=== PATIENT | male | born 2000 | race Caucasian/White ===

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

== ENCOUNTER 2021-02-21 09:26 | Emergency (ER) | payer BC, SELFPAY ==
[2021-02-21 09:34] VITALS: BP 156/77; PULSE 92; RESP 16; TEMP 36.5; O2SAT 99
--- NOTE | 2021-02-21 10:30 | ED.URI ---
HPI - URI/Sore Throat General Chief Complaint: Upper Respiratory Infection Stated Complaint: Sore Throat/Congestion Source: patient and RN notes reviewed Mode of arrival: ambulatory History of Present Illness HPI Narrative: 20-year-old male presents with complaint of increased fatigue, cough with yellow sputum for about 4 days. He endorses his girlfriend had a negative Covid test about 4 days ago. He denies shortness of breath, fever, chills, headache, or dizziness. Related Data Allergies Allergy/AdvReac Type Severity Reaction Status Date / Time No Known Allergies Allergy Verified 03/30/19 11:23 Review of Systems Review of Systems: All systems reviewed & are unremarkable except as noted in HPI and below PMFSH Past Medical History Medical History ADHD Asthma Family History Family History (Updated 02/21/21 @ 10:34 by Radhika Velazquez APRN) Other Family history non-contributory Social History Social History Smoking status: Never smoker Exam Narrative: GENERAL: This is a well-nourished, well-developed patient, in no apparent distress. HEAD: normocephalic, atraumatic. EYES: PERRL. Sclera clear/white. Vision is grossly intact. EARS: External ears normal, auditory canals clear and without drainage, TMs normal without perforation. Hearing grossly intact. NOSE: External nose normal with no obvious nasal discharge, nares without redness, no rhinorrhea. THROAT: Mucous membranes moist, posterior pharynx clear. NECK: Neck supple, non-tender without lymphadenopathy, masses or thyromegaly. CARDIOVASCULAR: Regular rate and rhythm without murmurs, gallops, or rubs. RESPIRATORY: Clear to auscultation. Breath sounds equal bilaterally. No wheezes, rales, or rhonchi. GASTROINTESTINAL: Abdomen soft, non-tender, nondistended. SKIN: warm, intact with no suspicious lesions or rash, good texture and turgor. NEURO: awake, alert, and oriented to person, place and time. There were no obvious focal neurologic abnormalities. Steady gait EXTREMITIES: Normal range of motion. No edema. No calf tenderness. Negative Homans sign bilaterally. BACK: Nontender without deformity or crepitance. No flank tenderness. Course Course Level of Care: Express Care Visit Vital Signs Vital signs: Vital Signs Temperature 97.7 F 02/21/21 09:34 Pulse Rate 92 02/21/21 09:34 Respiratory Rate 16 02/21/21 09:34 Blood Pressure 156/77 H 02/21/21 09:34 Pulse Oximetry 99 02/21/21 09:34 Temperature 97.7 F 02/21/21 09:34 Pulse Rate 92 02/21/21 09:34 Respiratory Rate 16 02/21/21 09:34 Blood Pressure 156/77 H 02/21/21 09:34 Pulse Oximetry 99 02/21/21 09:34 MDM - URI/Sore Throat MDM Narrative Medical decision making narrative: covid swab neg Discharge home with instructions on supportive care. Differential Diagnosis Differential diagnosis: Likely upper respiratory infection, sinusitis, viral infection and influenza Discharge Plan Discharge Clinical Impression: Viral infection Patient Disposition: Home, Self-Care Condition: Stable Instructions: Antibiotic Form, Viral Syndrome (ED) Additional Instructions: This is likely viral illness, no antibiotic is needed at this time. Treatment is aimed toward your specific symptoms. You must treat your symptoms in order to feel better while the virus runs it's course. Recommend antihistamine such as Benadryl at night time and Claritin/Zyrtec/Namita during the day Use inhaler as needed for cough, wheezing, shortness of breath or chest tightness. -Hot steamy showers in the morning to help open up your sinuses -Hot tea with lemon and honey. A teaspoon of honey may help as a cough suppressant. -Increase fluid intake Frequent hand washing or hand drag car racer is one of the best ways to prevent spread of infection. Prescriptions: New cetirizine [Zyrtec] 10 mg
== END 2021-02-21 11:22 | disposition home or self-care (01) ==
PROVIDERS: Emergency Provider Nurse Practitioner Family
DX: B34.9 Viral infection, unspecified (principal); Z20.822 Contact with and (suspected) exposure to COVID-19; J45.909 Unspecified asthma, uncomplicated
CPT/HCPCS: 87426; 99213; C9803; G0463

== ENCOUNTER 2021-04-02 17:18 | Emergency (ER) | payer BC, SELFPAY ==
--- NOTE | 2021-04-02 17:21 | ED.UPPEXIN ---
HPI - Extremity Injury (Upper) General Chief Complaint: Extremity Injury, Upper Stated Complaint: collarbone pain Time Seen by Provider: 04/02/21 17:21 Source: patient and RN notes reviewed History of Present Illness HPI narrative: Patient is a 20-year-old male who presents the urgent care with complaints of right shoulder/collarbone pain. Patient states that he noticed it prior to his workout and then started to workout this evening. 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 Patient has not done any thing [id number] for his pain. Denies of any known trauma or injury. No other complaints. No acute distress noted. Patient aware of the plan of care. Some parts of this dictation were generated by voice recognition software and may contain typographical and/or grammatical inaccuracies. Related Data Allergies Allergy/AdvReac Type Severity Reaction Status Date / Time No Known Allergies Allergy Verified 04/02/21 17:26 Review of Systems Review of Systems: CONSTITUTIONAL: Denies fever, chills, or sweats. EYES: Denies visual changes, redness, or discharge. ENT: Denies rhinorrhea, congestion, sore throat, or otalgia. CARDIOVASCULAR: Denies chest pain, palpitations, or edema. RESPIRATORY: Denies cough or dyspnea. GASTROINTESTINAL: Denies abdominal pain, nausea, vomiting, or diarrhea. GENITOURINARY: Denies dysuria or hematuria. SKIN: Denies rash or itching. MUSCULOSKELETAL: Reports of right shoulder pain radiating to the right collarbone NEUROLOGIC: Denies headache, numbness, or weakness. All other systems reviewed are negative, except as documented in HPI. PMFSH Past Medical History Medical History ADHD Asthma Family History Family History (Updated 02/21/21 @ 10:34 by Radhika Velazquez APRN) Other Family history non-contributory Social History Social History Smoking status: Never smoker Comments At the time of my signature, I reviewed and agree with the nursing past medical, surgical, social, and family history. There is no relevant family history pertinent to the patient complaint. Exam Narrative: GENERAL: This is a well-nourished, well-developed patient, in no apparent distress. HEAD: normocephalic, atraumatic. EYES: PERRL. Sclera clear/white. Vision is grossly intact. EARS: External ears normal NOSE: External nose normal with no obvious nasal discharge, nares without redness, no rhinorrhea. THROAT: Mucous membranes moist, posterior pharynx clear. NECK: Neck supple SKIN: warm, intact with no suspicious lesions or rash, good texture and turgor. NEURO: awake, alert, and oriented to person, place and time. There were no obvious focal neurologic abnormalities. EXTREMITIES: Range of motion bilateral upper extremities is within normal limits. Very mild exacerbated pain to the right shoulder, with lifting above the head. No crepitus or step-off noted to the bilateral collarbones. Course Course Level of Care: Express Care Visit Vital Signs Vital signs: Vital Signs Temperature 96.8 F L 04/02/21 17:24 Pulse Rate 100 04/02/21 17:24 Respiratory Rate 20 04/02/21 17:24 Blood Pressure 160/88 H 04/02/21 17:24 Pulse Oximetry 98 04/02/21 17:24 Temperature 96.8 F L 04/02/21 17:33 Pulse Rate 100 04/02/21 17:33 Respiratory Rate 20 04/02/21 17:33 Blood Pressure 160/88 H 04/02/21 17:33 Pulse Oximetry 98 04/02/21 17:33 Reviewed-patient is informed that they may have pre-hypertension or hypertension based on a blood pressure reading in the department. I recommend the patient call the primary care provider listed on their discharge instructions or a physician of their choice this week to arrange follow-up for further evaluation of possible pre-hypertension or hypertension. MDM - Extremity Injury (Upper) MDM Narrat
[2021-04-02 17:24] VITALS: BP 160/88; PULSE 100; RESP 20; TEMP 36; O2SAT 98
[2021-04-02 17:33] VITALS: BP 160/88; PULSE 100; RESP 20; TEMP 36; O2SAT 98
== END 2021-04-02 17:45 | disposition home or self-care (01) ==
PROVIDERS: Emergency Provider Nurse Practitioner Family; PCP Internal Medicine Infectious Disease
DX: S43.401A Unspecified sprain of right shoulder joint, initial encounter (principal); X58.XXXA Exposure to other specified factors, initial encounter; J45.909 Unspecified asthma, uncomplicated
CPT/HCPCS: 99212; G0463

== ENCOUNTER 2024-12-11 14:33 | Emergency (ER) | payer OTHER, SELFPAY ==
[2024-12-11 14:36] VITALS: BP 182/107; PULSE 106; RESP 18; TEMP 36.6; O2SAT 99
--- NOTE | 2024-12-11 14:50 | ED_ITS ---
HPI - Extremity Injury (Lower) General Chief Complaint: Extremity Injury, Lower Stated Complaint: Left Leg Pain Time Seen by Provider: 12/11/24 14:50 Source: patient Mode of arrival: ambulatory Limitations: no limitations History of Present Illness HPI Narrative: 24 yo M presents with pain to L thigh for 1 wk. Denies injury. i think pain should have been better by now so just coming to get it looked at. Pt states pain definitely muscular, no pain at rest, worse with movement. All systems reviewed and negative except as noted above. Related Data Home Medications ?Medication ?Instructions ?Recorded ?Confirmed ?Last Taken ?Type lisdexamfetamine 30 mg capsule mg 12/11/24 Unknown Hi story Allergies Allergy/AdvReac Type Severity Reaction Status Date / Time No Known Allergies Allergy Verified 12/11/24 14:47 [facility] Past Medical History Medical History ADHD Asthma Family History Family History (Updated 02/21/21 @ 10:34 by Radhika Barron APRN) Other Family history non-contributory Social History Social History Smoking status: Never smoker Living arrangements: with family Occupation/Education: student Comments At time of signature, agree with nursing past medical, surgical, social and family history. There is no relevant family history pertinent to the presenting complaint. Exam Narrative: GENERAL: This is a well-nourished, well-developed patient, in no apparent distress. HEAD: normocephalic, atraumatic. EYES: PERRL. Sclera clear/white. Vision is grossly intact. EARS: External ears normal NOSE: External nose normal NECK: Neck supple, non-tender without lymphadenopathy, masses or thyromegaly. CARDIOVASCULAR: Regular rate and rhythm without murmurs, gallops, or rubs. RESPIRATORY: Clear to auscultation. Breath sounds equal bilaterally. No wheezes, rales, or rhonchi. SKIN: warm, Dry, intact with no suspicious lesions or rash, good texture and turgor. NEURO: awake, alert, and oriented to person, place and time. There were no obvious focal neurologic abnormalities. EXTREMITIES:tenderness to medial aspect L thigh on palpation. pain with active ROM, not passive ROM. normal ROM. distal NV intact Course Course Level of Care: Express Care Visit Vital Signs Vital signs: Vital Signs Temperature 36.6 C 12/11/24 14:36 Pulse Rate 106 H 12/11/24 14:36 Respiratory Rate 18 12/11/24 14:36 Blood Pressure 182/107 H 12/11/24 14:36 Pulse Oximetry 99 12/11/24 14:36 Oxygen Delivery Room Air 12/11/24 14:36 Temperature 36.6 C 12/11/24 14:36 Pulse Rate 106 H 12/11/24 14:36 Respiratory Rate 18 12/11/24 14:36 Blood Pressure 182/107 H 12/11/24 14:36 Pulse Oximetry 99 12/11/24 14:36 Oxygen Delivery Room Air 12/11/24 14:36 At time of signature, agree with nursing past medical, surgical, social and family history. There is no relevant family history pertinent to the presenting complaint. MDM - Extremity Injury (Lower) MDM Narrative Medical decision making narrative: recommend [id number] ibuprofen, ice, stretching. Will prescribe methocarbamol to take as needed for muscle spasms. Will follow-up primary care physician if not improving. Discharge Plan Discharge Clinical Impression: Muscle strain of left thigh Patient Disposition: Home Condition: Stable Instructions: Muscle Strain (ED) Additional Instructions: Take medications as prescribed. Methocarbamol as a muscle relaxant may cause drowsiness. Do not take this medication while driving. Alternate between ice and heat. Do stretching exercises as tolerated. Follow-up your primary care physician if pain is not improving. Patient Language: Jamaican Prescriptions: New ibuprofen 800 mg tablet 800 mg PO TID PRN (Reason: pain) Qty: 30 0RF methocarbamol 750 mg tablet 750 mg PO Q8H PRN (Reason: muscle pain/spasm) Qty: 30 0RF lidocaine 5 % adhesive patch,medicated 1 patch topical DAILY Qty: 15 0RF Rx Instructions: leave on most painful area for up to 12 hrs No Action lisdexamfetamine 30 mg capsule Follow-up/Referrals: UNKNOWN,DOCTOR [Primary Care Provider] Time of Disposition: 14:57
== END 2024-12-11 15:03 | disposition home or self-care (01) ==
PROVIDERS: Emergency Provider Nurse Practitioner Family
DX: S76.912A Strain of unspecified muscles, fascia and tendons at thigh level, left thigh, initial encounter (principal); X58.XXXA Exposure to other specified factors, initial encounter; F90.9 Attention-deficit hyperactivity disorder, unspecified type; J45.909 Unspecified asthma, uncomplicated
CPT/HCPCS: 99213; G0463